=== PATIENT | male | born 1940 | race Caucasian/White ===

== ENCOUNTER 2023-01-15 08:24 | Day surgery (SDC) | payer MEDICARE, OTHER ==
[~2023-01-15] VITALS: Ht 180.3 cm; Wt 87.6 kg
[2023-01-15] VITALS (12 sets, daily range): BP systolic 118–185; BP diastolic 56–86; PULSE 60–76; RESP 16–18; TEMP 97.6; O2SAT 67–100
[2023-01-15] MEDS ORDERED: CYAN500T71 PO (09:26)
[2023-01-15] MEDS ORDERED: ATOR10TA PO (09:26)
[2023-01-15] MEDS ORDERED: SYN0.088T PO (09:26)
[2023-01-15] MEDS ORDERED: GABA-530 PO (09:26)
[2023-01-15] MEDS ORDERED: ASPI-1265 PO (09:26)
[2023-01-15] MEDS ORDERED: FLUT1BLS10 INH (09:26)
[2023-01-15] MEDS ORDERED: APAL240T PO (09:26)
[2023-01-15] MEDS ORDERED: OMEP40CA21 PO (09:26)
[2023-01-15] MEDS ORDERED: HYDR-3964 PO (09:26)
[2023-01-15] MEDS ORDERED: ERGO400C PO (09:26)
[2023-01-15] MEDS ORDERED: FLO0.4C PO (09:26)
[2023-01-15] MEDS ORDERED: TIOT4MIS2 IH (09:26)
[2023-01-15 09:38] LABS: BASOPHILS % (AUTO) 0.8 % (0-1); EOSINOPHILS # (AUTO) 0.1 X10'3 (0-0.9); EOSINOPHILS % (AUTO) 2.1 % (0-6); HEMATOCRIT 35.5 % (42.0-52.0); LYMPHOCYTES # (AUTO) 0.5 X10'3 (1.1-4.8); LYMPHOCYTES % (AUTO) 10.1 % (21-51); MEAN CORPUSCULAR HEMOGLOBIN 32.7 PG (27.0-31.0); MEAN CORPUSCULAR HGB CONC 33.8 g/dL (33.0-36.5); MEAN CORPUSCULAR VOLUME 96.6 FL (78-98); MEAN PLATELET VOLUME 7.7 FL (7.4-10.4); MONOCYTES # (AUTO) 0.5 X10'3 (0-0.9); MONOCYTES % (AUTO) 10.8 % (2-12); NEUTROPHILS # (AUTO) 3.8 X10'3 (1.8-7.7); NEUTROPHILS % (AUTO) 76.2 % (42-75); PLATELET COUNT 307 X10'3 (140-440); RED BLOOD COUNT 3.68 X10'6 (4.70-6.10); RED CELL DISTRIBUTION WIDTH 14.3 % (11.5-14.5)
[2023-01-15 10:02] LABS: INR 0.9 INR
[2023-01-15 10:31] LABS: ALBUMIN 3.1 G/DL (3.4-5.0); ALKALINE PHOSPHATASE 56 IU/L (46-116); ASPARTATE AMINO TRANSFERASE 11 U/L (10-37); BILIRUBIN,TOTAL 0.3 MG/DL (0.1-1.0); CALCIUM 9.3 MG/DL (8.5-10.1); TOTAL CARBON DIOXIDE 28.3 MMOL/L (24-32); TOTAL PROTEIN 6.3 G/DL (6.4-8.2)
[2023-01-15 10:33] LABS: ALANINE AMINOTRANSFERASE < 6 U/L (12-78); ANION GAP 8 (8-16); BLOOD UREA NITROGEN 10 MG/DL (7-18); BUN/CREATININE RATIO 13.2 (10.0-20.0); CHLORIDE 100 MMOL/L (99-107); CREATININE 0.76 MG/DL (0.60-1.10); GLUCOSE 123 MG/DL (70-104); POTASSIUM 4.3 MMOL/L (3.5-5.1); SODIUM 136 MMOL/L (135-145); eCRCL 77 ML/MIN; eGFR > 90 ML/MIN
[2023-01-15] MEDS ORDERED: midazolam 1 mg/ML 2ml injection ONE (10:52)
[2023-01-15] MEDS ORDERED: fentaNYL/PF 50MCG/1 ML 2ML syringe ONE (10:52)
[2023-01-15] MEDS ORDERED: normal saline 1000ml 1,000 ML IV SCH (11:00)
== END 2023-01-15 13:35 | disposition home or self-care (01) ==
LOC: SSTAY O 08:24
PROVIDERS: ATTEND Radiology Diagnostic Radiology
DX: M79.89 Other specified soft tissue disorders (principal); C61 Malignant neoplasm of prostate; C79.51 Secondary malignant neoplasm of bone; G62.9 Polyneuropathy, unspecified; E78.00 Pure hypercholesterolemia, unspecified; Z79.899 Other long term (current) drug therapy; Z79.82 Long term (current) use of aspirin
CPT/HCPCS: 20206; 36415; 76942; 80053; 82948; 85025; 85610; J2250; J3010; J7030; A4615

== ENCOUNTER 2025-04-01 13:11 | Emergency (ER) | payer MEDICARE, OTHER ==
[~2025-04-01] VITALS: Ht 180.3 cm; Wt 101.8 kg
[~2025-04-01 13:11] MED LIST: APAL240T PO; ASPI-1265 PO; ATOR10TA PO; CYAN500T71 PO; ERGO400C PO; FLUT1BLS10 INH; GABA-530 PO; HYDR-3964 PO; OMEP40CA21 PO; SYN0.088T PO; TAMS-55 PO; TIOT4MIS2 IH
[2025-04-01 13:17] VITALS: TEMP 97.3
[2025-04-01 14:08] LABS: MEAN PLATELET VOLUME 6.9 FL (7.4-10.4); RED CELL DISTRIBUTION WIDTH 13.6 % (11.5-14.5)
[2025-04-01 14:18] LABS: CREATININE 1.08 MG/DL (0.60-1.10); TOTAL CARBON DIOXIDE 26.8 MMOL/L (24-32); eCRCL 52 ML/MIN; eGFR 65 ML/MIN
[2025-04-01 14:19] LABS: INR 1.0 INR
--- NOTE | 2025-04-01 14:27 | RADIOLOGY REPORT ---
CLINICAL INFORMATION: Pain. TECHNIQUE: Axial imaging was obtained through the brain without contrast. Coronal and sagittal reformatted images were obtained, reviewed, and stored. Images were reviewed in brain and bone windows. All CT scans at this medical facility are performed using dose modulation techniques as appropriate to a performed exam including the following: Automated exposure control was utilized; adjustment of the MA and/or KV according to patient size; and use of iterative reconstruction technique. CTDIvol = 65.95 mGy DLP = 1200.21 mGy-cm COMPARISON: None FINDINGS: There is no acute intracranial hemorrhage. No mass effect or midline shift. Scattered areas of hypoattenuation are seen in the periventricular and subcortical white matter, which are nonspecific but most likely sequelae of small vessel ischemic disease. The ventricles and sulci are within normal limits in size for age. Basal cisterns are patent. The calvarium is unremarkable. Paranasal sinuses are clear. Minimal partial opacification of the inferior right mastoid air cells, likely due to effusion. IMPRESSION: No CT evidence of acute intracranial abnormality. Nonacute findings as described above.
--- NOTE | 2025-04-01 15:09 | RADIOLOGY REPORT ---
CT Chest without intravenous contrast INDICATION: PAIN TECHNIQUE: Multidetector spiral CT of the chest was performed from the lung apices to the upper abdomen. Axial, coronal and sagittal multiplanar reformats were performed. Radiation Dose : 1. Chest: CTDI volume is 18.7 mGy. Dose-length product is 709 mGy*cm The dose indicators for CT are the volume Computed Tomography (CT) Dose Index (CTDIvol) and the Dose Length Product (DLP), and are measured in units of mGy and mGy-cm, respectively. These indicators are not patient dose, but values generated from the CT scanner acquisition factors. The report includes radiation exposure data for exposures received during this examination. Comparison: None Findings: Lower neck: Normal thyroid. Lungs: No focal consolidation. 0.7 cm nodule in the right upper lobe, image 18 0.7 cm nodule in the left upper lobe image 19 Heart/Vascular Structures: Cardiomegaly. Coronary artery calcifications. Vascular calcifications of the aorta. Lymph Nodes: No adenopathy Pleura: No pleural effusion or significant pneumothorax. Musculoskeletal: Comminuted mildly displaced left mid clavicle fracture. There is an expansile appearance to the mid left clavicle which may represent pathologic fracture with underlying soft-tissue component. Nonspecific sclerosis of the C7 vertebral body. Scoliosis. Degenerative changes of the spine. Soft tissues: Moderate to severe soft-tissue swelling and edema in the left chest and presternal soft-tissue. Upper abdomen: Moderate hiatal hernia. IMPRESSION: Comminuted mildly displaced left mid clavicle fracture. There is an expansile appearance to the mid left clavicle which may represent pathologic fracture with underlying soft-tissue component. Moderate to severe soft-tissue swelling and edema in the left chest and presternal soft-tissue. Nonspecific sclerosis of the C7 vertebral body. Moderate hiatal hernia. 0.7 cm nodule in the right upper lobe, image 18 0.7 cm nodule in the left upper lobe image 19 Fleischner Society pulmonary nodule recommendations (2017): Single solid nodule <6 mm Low-risk patients: no routine follow-up required High-risk patients: optional CT at 12 months (particularly with suspicious nodule morphology and/or upper lobe location) Solitary solid nodule 6-8 mm Low-risk patients: CT at 6-12 months, then consider CT at 18-24 months High-risk patients: CT at 6-12 months, then CT at 18-24 months Solitary solid nodule >8 mm (>250 mm3) Low-risk and high-risk patients: consider CT at 3 months, PET/CT, or tissue sampling Multiple solid nodules <6 mm Low-risk patients: no routine follow-up required High-risk patients: optional CT at 12 months Multiple solid nodules >6 mm Low-risk patients: CT at 3-6 months, then consider CT at 18-24 months High-risk patients: CT at 3-6 months, then CT at 18-24 months When multiple nodules are present, the most suspicious nodule should guide further individualized management. Solitary groundglass opacities < 6 mm require no follow-up Multiple groundglass opacities < 6 mm: CT 3-6 months. If stable consider CT at 2 , and 4 years Groundglass opacities >6 mm: follow-up in 6-12 months and then every 2 years for 5 years. Groundglass opacities greater than 6 mm with part solid component follow-up CT in 3-6 months to confirm persistence. If unchanged and solid component remains less than [address] for 5 years Multiple groundglass opacities greater than 6 mm: CT at 3-6 months. Subsequent management based on the most suspicious nodules. These recommendations do not necessarily apply to women, patients with immunosuppression or a prior history of cancer, patients with multiple nodules that are suspicious for metastasis or infection, or patients with mediastinal lymphadenopathy or pleural effusion in whom cancer is strongly suspected. Radiation optimization: All CT scans at this facility use at least one of these dose optimization techniques: automated exposure control mA and/or kV adjustment per patient size (includes targeted exams where dose is matched to clinical indication) or iterative reconstruction.
--- NOTE | 2025-04-01 15:21 | Physician Documentation ---
History of Present Illness ~ Chief Complaint: Mechanical Fall Stated Complaint: FALL SHOULDER PAIN Time Seen by MD: 13:40 Primary Medical Doctor: KELLY Source: patient Mode of Arrival: Ambulatory Exam Limitations: no limitations HPI 84-year-old male who drove himself here today for evaluation of left upper chest wall pain after he had a ground level fall last night at home. He states he was not going to come here today but he was at his radiation treatment for a nodule in his chest and states "the nurses insisted I come" when they saw the bruise o his chest. Last night the pain made it difficult for him to sleep. States pain severity is 7/10. He has pain medication at home due to his metastatic prostate cancer but has not taken any and does not want medication at this time. No fever, chills, shortness of breath, abdominal pain, cough, nausea, neck or back pain. He states he can move his arm normally despite the pain in his upper chest. He did not hit his head. No LOC. Tetanus within 5 Years?: Yes Medication Reconciliation Allergies: Coded Allergies: No Known Allergies (Unverified , 04/01/25) Scheduled Apalutamide (Erleada), 1 TAB PO DAILY, (Reported) Aspirin (Aspirin), 1 TAB PO DAILY, (Reported) Atorvastatin Calcium (Lipitor), Unknown Dose PO DAILY, (Reported) Cyanocobalamin* (Vitamin B-12*), Unknown Dose PO DAILY, (Reported) Ergocalciferol (Vitamin D), Unknown Dose PO DAILY, (Reported) Fluticasone Propion/Salmeterol (Wixela 250-50 Inhub), 250 MCG INH PRN, (Reported) Gabapentin (Gabapentin), Unknown Dose PO Q8H, (Reported) Hydrocodone Bit/Acetaminophen (Hydrocodon-Acetaminophen 5-325), 1 TAB PO TID PRN, (Reported) Levothyroxine Sodium* (Synthroid*), Unknown Dose PO DAILY, (Reported) Omeprazole (Prilosec), Unknown Dose PO DAILY, (Reported) Tamsulosin Hcl* (Flomax*), Unknown Dose PO DAILY, (Reported) Tiotropium Christiana (Spiriva Respimat), 2.5 MCG IH PRN, (Reported) Past Medical History Past Medical History: Coronary Artery Disease, High Cholesterol, Hypertension, Thyroid (unspecified) Past Surgical History: no surgical history Alcohol Use: None Drug Use: none Lives with: Spouse Lives In: Home Occupation: retired Review of Systems All Other Systems at this time: Reviewed and Negative Physical Exam Vital Signs: Temperature: 97.3, Source: Temporal, Heart Rate: 73, Respiratory Rate: 18, BP: 132/59, Pulse Oximetry: 93, Weight: 101.800 Oxygen Flow Rate: 0 Physical Exam GENERAL: Alert, no acute distress. HEENT: NCAT, EOMI, PERRL, normal oropharynx, moist oral mucosa. NECK: Supple, trachea midline. CARDIAC: Regular rate and rhythm, no murmurs, rubs, or gallops. Equal distal pulses. No lower extremity edema, cap refill less than 2 seconds. RESPIRATORY: Equal breath sounds, clear to auscultation bilaterally, no respiratory distress. GASTROINTESTINAL: Non distended, soft, nontender, No guarding or rebound. MUSCULOSKELETAL: LEFT UPPER CHEST CONSIDERABLE ECCHYMOSIS, TTP OVER MEDIAL CLAVICLE WHERE THERE IS SWELLING. Normal range of motion OF UPPER EXTREMITIES. NTTP OVER SPINOUS PROCESSES. nNormal gait. NEUROLOGICAL: Awake, alert, and oriented x 3. SKIN: Warm/dry, no pallor, no rash. PSYCH: Alert and appropriate. Affect congruent with mood. Speech is clear. Good eye contact. Progress Results/Orders Results/Orders Vital Signs 04/01/25 04/01/25 04/01/25 04/01/25 13:17 13:41 15:03 15:04 Temp 97.3 Pulse 104 94 73 Resp 20 12 15 18 B/P (MAP) 140/87 148/75 (99) 132/59 (83) Pulse Ox 96 93 93 O2 Flow Rate 0 Laboratory Tests Test 04/01/25 13:57 White Blood Count 5.5 Red Blood Count 3.23 L Hemoglobin 10.6 L Hematocrit 31.7 L Mean Corpuscular Volume 98.1 H Mean Corpuscular Hemoglobin 32.8 H Mean Corpuscular Hemoglobin Concent 33.5 Red Cell Distribution Width 13.6 Platelet Count 229 Mean Platelet Volume 6.9 L Neutrophils (%) (Auto) 87.0 H Lymphocytes (%) (Auto) 5.4 L Monocytes (%) (Auto) 7.0 Eosinophils (%) (Auto) 0.3 Basophils (%) (Auto) 0.3 Neutrophils # (Auto) 4.8 Lymphocytes # (Auto) 0.3 L Monocytes # (Auto) 0.4 Eosinophils # (Auto) 0.0 Basophils # (Auto) 0.0 CBC Comment Prothrombin Time 10.2 INR International Normalized Ratio 1.0 Coagulation Comments Sodium Level 136 Potassium Level 4.7 Chloride Level 100 Carbon Dioxide Level 26.8 Anion Gap 9 Blood Urea Nitrogen 20 H Creatinine 1.08 Estimated GFR/1.73 m2 65 BUN/Creatinine Ratio 18.5 Glucose Level 148 H Calcium Level 9.0 Albumin 3.4 Chemistry Comments Medical Decision Making Additional information obtaine: N/A Findings N/A Differential Dx:Considerations: Include: Closed head injury, Cardiac injury, Fracture(s), Intraabdominal injury, Pneumothorax, Cerebral contusion, Pulmonary contusion, Spine injury, Tracheal injury, Urological injury, Vascular injury, Abrasion(s), Contusion(s), Foreign body(s), Hematoma(s), Laceration(s), Encephalopathy, Other Departure Time of Disposition: 15:17 Disposition: 01 HOME / SELF CARE / HOMELESS Impression: Primary Impression: Clavicle fracture Qualified Codes: S42.002A - Fracture of unspecified part of left clavicle, initial encounter for closed fracture Additional Impressions: Contusion of left chest wall Qualified Codes: S20.212A - Contusion of left front wall of thorax, initial encounter Ground-level fall Condition: Stable Discharge Instructions: Fall Prevention in the Home, Adult, [id number] Additional Instructions: YOUR LABS LOOKED STABLE WHEN COMPARED TO YOUR PREVIOUS VISITS COPIES OF YOUR IMAGING STUDY RESULTS ARE BELOW YOU HAVE A BROKEN CLAVICLE BUT NO OTHER FRACTURES NOTED IMPRESSION: Comminuted mildly displaced left mid clavicle fracture. There is an expansile appearance to the mid left clavicle which may represent pathologic fracture with underlying soft-tissue component. Moderate to severe soft-tissue swelling and edema in the left chest and presternal soft-tissue. Nonspecific sclerosis of the C7 vertebral body. Moderate hiatal hernia. CLINICAL INFORMATION: Pain. TECHNIQUE: Axial imaging was obtained through the brain without contrast. Coronal and sagittal reformatted images were obtained, reviewed, and stored. Images were reviewed in brain and bone windows. All CT scans at this medical facility are performed using dose modulation techniques as appropriate to a performed exam including the following: Automated exposure control was utilized; adjustment of the MA and/or KV according to patient size; and use of iterative reconstruction technique. CTDIvol = 65.95 mGy DLP = 1200.21 mGy-cm COMPARISON: None FINDINGS: There is no acute intracranial hemorrhage. No mass effect or midline shift. Scattered areas of hypoattenuation are seen in the periventricular and subcortical white matter, which are nonspecific but most likely sequelae of sma ll vessel ischemic disease. The ventricles and sulci are within normal limits in size for age. Basal cisterns are patent. The calvarium is unremarkable. Paranasal sinuses are clear. Minimal partial opacification of the inferior right mastoid air cells, likely due to effusion. IMPRESSION: No CT evidence of acute intracranial abnormality. Nonacute findings as described above. Referrals: NO PRIMARY CARE PROVIDER (PCP) Education Educated: Patient Educated regarding: diagnosis, treatment, need for follow up Signature Scribe Signature: x Attestation: ESDRAS Garibay Apr 01, 2025 15:21
[2025-04-01 15:34] VITALS: BP 158/86; PULSE 76; RESP 15; O2SAT 95
== END 2025-04-01 15:37 | disposition home or self-care (01) ==
LOC: ER 13:12
DX: S42.022A Displaced fracture of shaft of left clavicle, initial encounter for closed fracture (principal); S20.212A Contusion of left front wall of thorax, initial encounter; E78.00 Pure hypercholesterolemia, unspecified; I10 Essential (primary) hypertension; I25.10 Atherosclerotic heart disease of native coronary artery without angina pectoris; Z79.899 Other long term (current) drug therapy; Z79.82 Long term (current) use of aspirin; W18.30XA Fall on same level, unspecified, initial encounter; Y93.89 Activity, other specified; Y92.009 Unspecified place in unspecified non-institutional (private) residence as the place of occurrence of the external cause; Y99.8 Other external cause status
CPT/HCPCS: 36415; 70450; 71250; 80048; 85025; 85610; 99284